=== PATIENT | female | born 1965 | race Asian ===

== ENCOUNTER 2017-08-14 15:16 | Outpatient (CLI) | payer BC ==
--- NOTE | 2017-08-14 17:18 | MMO ---
BILATERAL SCREENING MAMMOGRAM: Date: 08/14/17 INDICATION: Annual exam. COMPARISON: Prior exam dated 10/26/15 and 05/19/13. FINDINGS: Interpretation of this exam was assisted with computer-aided detection. The breast parenchyma remains heterogeneously dense. The numerous scattered calcifications within the right and left breast, left greater than right, are stable. No new suspicious mass, cluster of microcalcifications, or area of architectural distortion is evide nt. IMPRESSION: BIRADS 2: Benign Finding(s) Recommend routine annual mammographic screening. POS: [facility]
== END 2017-08-14 15:17 | disposition home or self-care (01) ==
LOC: MAMMO 15:16
PROVIDERS: ATTEND Family Medicine
DX: Z12.31 Encounter for screening mammogram for malignant neoplasm of breast (principal)
CPT/HCPCS: 77067; G0202

== ENCOUNTER 2017-12-03 15:36 | Outpatient (CLI) | payer BC | END 2017-12-03 15:37 | disposition home or self-care (01) | LOC: BICULT 15:36 | PROVIDERS: ATTEND Family Medicine | DX: N93.9 Abnormal uterine and vaginal bleeding, unspecified (principal); D25.9 Leiomyoma of uterus, unspecified | CPT/HCPCS: 76856 ==